=== PATIENT | male | born 1975 | race Two or more races ===

== ENCOUNTER 2020-01-17 15:54 | Inpatient (IN) | payer MEDICAID, SELFPAY ==
[~2020-01-17] VITALS: Ht 170.2 cm; Wt 86.6 kg
[2020-01-17] MEDS ORDERED: VANCOMYCIN 1 GM in IV D5W 250 ML IV ONE ×2 (16:30→19:00)
[2020-01-17] MEDS ORDERED: CEFEPIME 1 GM in IV D5W 50 ML IV ONE ×2 (16:30→19:00)
[2020-01-17] MEDS ORDERED: DEXAMETHASONE SOD PHOSPHATE 10 MG/ML VIAL IV ONE ×2 (16:30→19:00)
--- NOTE | 2020-01-17 16:41 | NUR ---
AYSHA FROM HOME TO ER BED 6. AAOX4. IN MODERATE RESP DISTRESS, BREATHING SHALLOW AND RAPID. SATTING AT 70%S. BROUGHT IN FOR SOB. REPORTED THAT HIS IS COVID POSITIVE BUT HE HASNT BEEN TESTED YET. PT IS PLACED ON O2 VIA FACE MASK @ 10LPM, SATTING @ 90%. WAS AT THE BEDSIDE FOR EVAL. ORDERS RECEIVED NOTED AND CARRIED OUT.
[2020-01-17] MEDS ORDERED: DEXAMETHASONE SOD PHOSPHATE 10 MG/ML VIAL ONE (16:58)
[2020-01-17 17:03] LABS: ABG OXYGEN SATURATION 92.9 % (92.0-98.5); ABG PCO2 37.6 mmHg (35.0-45.0); ABG PH 7.469 (7.350-7.450); ABG PO2 73.7 mmHg (75.0-100.0); AaDO2 204.4 mmHg; COHb 0.9 % (0.5-1.5); MetHb 0.2 % (0.0-1.5); O2Hb 91.9 % (94.0-97.0); SITE, ABG Right Radial; VENT MODE, BG 6L NC
[2020-01-17 17:09] LABS: BASOPHILS % (AUTO) 0.1 % (0.0-2.0); EOSINOPHILS % (AUTO) 0.2 % (0.0-6.0); HEMATOCRIT 36 % (39-51); LYMPHOCYTES # (AUTO) 1.2 /CMM (0.8-4.8); LYMPHOCYTES % (AUTO) 7.3 % (20.0-44.0); MEAN CORPUSCULAR HGB CONC 33 g/dl (31.0-36.0); MEAN CORPUSCULAR VOLUME 90 fL (80-96); MONOCYTES # (AUTO) 0.6 /CMM (0.1-1.30); MONOCYTES % (AUTO) 3.7 % (2.0-12.0); NEUTROPHILS # (AUTO) 14.3 /CMM (1.8-8.9); NEUTROPHILS % (AUTO) 88.7 % (43.0-81.0); PLATELET COUNT (AUTO) 287 /CMM (150-450); RED BLOOD CELL COUNT(AUTO) 4.02 MIL/uL (4.5-6.0); WHITE BLOOD COUNT (AUTO) 16.1 K/uL (4.3-11.0)
[2020-01-17 17:58] LABS: CALCIUM, SERUM 8.5 mg/dL (8.5-10.1); CARBON DIOXIDE 31 mmol/L (21-32); CHLORIDE 104 mmol/L (98-107); CREATININE 1.4 mg/dL (0.6-1.3); GLUCOSE 166 mg/dL (74-106); POTASSIUM 3.4 mmol/L (3.5-5.1); SODIUM SERUM 141 mmol/L (136-145); UREA NITROGEN, BLOOD 23 mg/dL (7-18)
[2020-01-17 18:04] LABS: ALANINE AMINOTRANSFERASE 34 U/L (12-78); ALBUMIN 2.5 g/dL (3.4-5.0); ALKALINE PHOSPHATASE 107 U/L (46-116); ASPARTATE AMINOTRANSFERASE 28 U/L (15-37); BILIRUBIN,DIRECT 0.2 mg/dL (0.0-0.2); BILIRUBIN,TOTAL 0.4 mg/dL (0.2-1.0); TOTAL PROTEIN, SERUM 7.2 g/dL (6.4-8.2)
[2020-01-17] MEDS ORDERED: NS 0.9% IV ONE (19:00)
[2020-01-17] MEDS ORDERED: POTASSIUM CL. PREMIX PERIPHER. 50 ML IV SCH (19:00)
--- NOTE | 2020-01-17 19:53 | NUR ---
called rn sup for [facility] bed
[2020-01-17] MEDS ORDERED: Z GUARD REMEDY 2 OZ OINT TP PRN (20:00)
[2020-01-17] MEDS ORDERED: ONDANSETRON HCL/PF 4 MG/2 ML VIAL IVP PRN (20:00)
[2020-01-17] MEDS ORDERED: ENOXAPARIN SODIUM 40 MG/0.4 ML DISP.SYRIN SQ SCH (21:00)
--- NOTE | 2020-01-17 21:04 | NUR ---
REPORT GIVEN TO GOPAL WEBSTER FOR BENSON
--- NOTE | 2020-01-17 21:20 | NUR ---
RN OPENING NOTE ADMIT PATIENT TO [facility] UNIT,44 YEARS OLD FRISIAN MAN ALERT ORIENTED X4 VERBALLY RESPONSIVE 10 LITER OXYGEN VIA MASK,LABORED BREATHING,COVID 19 RAPID TEST POSITIVE MONITORING FOR DROPLET/CONTACT ISOLATION,IV SITE IS ON LEFT FOREARM INTACT PATENT,FLUSHED, AMBULATORY,CONTINENT TO BOWEL/BLADDER.CALL LIGHT WITHIN REACH,HEAD OF BED ELEVATED,SAFETY MEASURE IMPLEMENT CONTINUE TO MONITOR
--- NOTE | 2020-01-17 21:26 | NUR ---
pt trasnported to unit on [facility] with emt and rn at bedside w/ acls protocol. nad noted during transport.
--- NOTE | 2020-01-17 21:50 | NUR ---
2150 PATIENT WITH C/O DRY COUGH AND IS REQUESTING FOR COUGH MEDICATION. DR. MARIA MADE AWARE WITH ORDER TO GIVE ROBITUSSIN WITH CODEIN 5 ML NEEDED EVERY 6 HOURS FOR COUGH. HE ALSO CLARIFIED DECADRON ORDER.
[2020-01-17 22:00] VITALS: BP 139/80
[2020-01-17] MEDS: PANTOPRAZOLE 40 MG TABLET.DR PO SCH (22:27)
[2020-01-17] MEDS: GUAIFENESIN/CODEINE 10 ML UDC PO PRN (22:31)
[2020-01-17] MEDS: AZITHROMYCIN 500 MG in IV D5W 250 ML IV SCH (22:37)
[2020-01-17] MEDS ORDERED: CEFTRIAXONE 1 G VIAL ONE ×2 (22:47→22:48)
[2020-01-17] MEDS: CEFTRIAXONE 2 G in IV D5W 100 ML IV SCH (22:51)
[2020-01-17 22:54] LABS: FERRITIN 854 ng/mL (8-388)
[2020-01-18 02:00] VITALS: BP 120/74
[2020-01-18 06:00] VITALS: BP 110/53
[2020-01-18 06:32] LABS: BASOPHILS % (AUTO) 0.1 % (0.0-2.0); HEMATOCRIT 36 % (39-51); LYMPHOCYTES % (AUTO) 8.4 % (20.0-44.0); MEAN CORPUSCULAR HGB CONC 34 g/dl (31.0-36.0); MEAN CORPUSCULAR VOLUME 90 fL (80-96); MONOCYTES # (AUTO) 0.6 /CMM (0.1-1.30); MONOCYTES % (AUTO) 4.7 % (2.0-12.0); NEUTROPHILS # (AUTO) 10.6 /CMM (1.8-8.9); NEUTROPHILS % (AUTO) 86.8 % (43.0-81.0); PLATELET COUNT (AUTO) 289 /CMM (150-450); RED BLOOD CELL COUNT(AUTO) 3.97 MIL/uL (4.5-6.0); WHITE BLOOD COUNT (AUTO) 12.2 K/uL (4.3-11.0)
[2020-01-18 06:46] LABS: ALBUMIN 2.3 g/dL (3.4-5.0); BILIRUBIN,TOTAL 0.3 mg/dL (0.2-1.0); CALCIUM, SERUM 8.4 mg/dL (8.5-10.1); CREATININE 1.1 mg/dL (0.6-1.3); POTASSIUM 4.1 mmol/L (3.5-5.1); TOTAL PROTEIN, SERUM 7.1 g/dL (6.4-8.2)
--- NOTE | 2020-01-18 06:48 | NUR ---
RN CLOSING NOTE PATIENT REMAINS IN ALERT ORIENTED X4 VERBALLY RESPONSIVE ON 10L OXYGEN VIA NONBREATHER MASK O2:93% COUGHING,DIFFICULTY BREATHING, COVID POSITIVE,ON MONITORING FOR DROPLET/CONTACT ISOLATION,ALL DUE MED GIVEN MD ORDERED KEEP CLEAN AND DRY ALL THE TIME,KEEP COMFORTABLE.CALL LIGHT CHELSEY REACH ENDORSE NEXT COMING SHIFT FOR CONTINUATION OF CARE.
--- NOTE | 2020-01-18 07:30 | NUR ---
PT RECEIVED IN BED, ALERT AND ORIENTED X 4, PT ON 10L NON-REBREATHER O2 SATURATION 93-94%. PT DENIES SOB. PT IS AMBULATORY WITH SKIN INTACT. PT ON REGULAR DIET WITH LEFT FOREARM 18 INTACT AND FLUSHED WELL, NO SIGNS OF INFECTION OR INFILTRATION. BED IN LOCKED LOWEST POSITION, CALL LIGHT WITHIN REACH, WILL CONTINUE TO MONITOR CLOSELY
[2020-01-18 08:00] VITALS: BP 130/72
[2020-01-18] MEDS ORDERED: DEXAMETHASONE SOD PHOSPHATE 6 MG in IV D5W 50 ML IV SCH ×4 (09:00)
[2020-01-18] MEDS: DEXAMETHASONE SOD PHOSPHATE 10 MG/ML VIAL IV SCH (09:26)
[2020-01-18] MEDS: PANTOPRAZOLE 40 MG TABLET.DR PO SCH (09:26)
[2020-01-18 12:00] VITALS: BP 125/60
[2020-01-18] MEDS: APIXABAN 5 MG TABLET PO SCH ×2 (13:20→17:03)
[2020-01-18] MEDS ORDERED: MORPHINE SULFATE INJ 4 MG/ML DISP.SYRIN IV PRN (14:00)
[2020-01-18] MEDS: GUAIFENESIN/CODEINE 10 ML UDC PO PRN ×2 (14:03→20:13)
[2020-01-18 16:00] VITALS: BP 125/74
[2020-01-18] MEDS ORDERED: REMDESIVIR (CHARGED) 200 MG, *LOADING DOSE 1 EA in IV NS 0.9% 210 ML IV ONE (16:00)
--- NOTE | 2020-01-18 19:20 | NUR ---
MAILROOM COURIER NOTE: PATIENT RESTING IN BED, NO ACUTE DISTRESS NOTED. BREATHING EVEN AND UNLABORED, SOB NOTED. ON NONREBREATHER MASK AT 15 LITERS PER MINUTE. IV TO LFA IN PLACE. ISOLATION PRECAUTION OBSERVED. BED LOCKED AND IN LOWEST POSITION, CALL LIGHT IN REACH. WILL CONTINUE TO MONITOR.
--- NOTE | 2020-01-18 19:47 | NUR ---
PATIENT REMAINS IN BED, ALERT AND ORIENTED X 4. PT O2 INCREASED FROM 10L TO 15L TODAY, MD GOMEZ AWARE. O2 SATURATION 91-95%. PT HAS NASAL CONGESTION, MD PAYNE AWARE, NO NEW ORDERS. PT O2 SATURATION IMPROVED WITH ROBITUSSIN PRN FOR NON-PRODUCTIVE COUGH. CONVALESCENT PLASMA ORDER SENT TO LAB EARLIER THIS SHIFT. PT IV LFA 18 FLUSHED WELL, NO SIGNS OF INFECTION OR INFILTRATION. BED IN LOCKED LOWEST POSITION, CALL LIGHT WITHIN REACH, ALL SAFETY MEASURES IN PLACE. REPORT GIVEN TO AYDE FOR BENSON
[2020-01-18] MEDS: CEFTRIAXONE 2 G in IV D5W 100 ML IV SCH (19:55)
[2020-01-18 20:00] VITALS: BP 131/77
--- NOTE | 2020-01-18 20:15 | NUR ---
FUEL CELL SYSTEMS ENGINEER NOTE: PATIENT COUGHING, ROBITUSSIN AC 5ML GIVEN PER MD ORDER. WILL CONTINUE TO MONITOR.
[2020-01-18] MEDS: AZITHROMYCIN 500 MG in IV D5W 250 ML IV SCH (21:22)
[2020-01-19] VITALS (10 sets, daily range): BP systolic 114–135; BP diastolic 59–78
--- NOTE | 2020-01-19 00:45 | NUR ---
WOMENS VOLLEYBALL COACH NOTE: PATIENT CONVALESCENT PLASMA READY AND PICKED UP. CONSENT SIGNED AND IN CHART. PLASM VERIFIED WITH 2ND RN. VITAL SIGNS STABLE. WILL CONTINUE TO MONITOR.
--- NOTE | 2020-01-19 01:15 | NUR ---
FOOD CONSULTANT NOTE: PATIENT RECEIVING CONVALESCENT PLASMA, VITAL SIGNS STABLE, NO ADVERSE REACTION NOTED. WILL CONTINUE TO MONITOR.
[2020-01-19] MEDS: GUAIFENESIN/CODEINE 10 ML UDC PO PRN ×4 (02:28→23:47)
--- NOTE | 2020-01-19 02:28 | NUR ---
TRACK MAINTAINER NOTE: PATIENT RECEIVED CONVALESCENT PLASM WITHOUT COMPLICATIONS OR ADVERSE REACTION. VITAL SIGNS STABLE. PATIENT REQUESTING FOR COUGH MEDICATION, ROBITUSSIN AC GIVEN PER MD ORDER. WILL CONTINUE TO MONITOR.
--- NOTE | 2020-01-19 06:05 | NUR ---
ONCOLOGY CONSULTANT NOTE: PATIENT RESTING IN BED, NO ACUTE DISTRESS NOTED. BREATHING EVEN AND UNLABORED, SOB NOTED. ON NONREBREATHER MASK AT 15 LITERS PER MINUTE. IV TO LFA IN PLACE. ISOLATION PRECAUTION OBSERVED. BED LOCKED AND IN LOWEST POSITION, CALL LIGHT IN REACH. WILL ENDORSE TO DAY NURSE TO CONTINUE WITH PLAN OF CARE.
--- NOTE | 2020-01-19 07:30 | NUR ---
RN OPENING NOTES Patient present in bed, A/Ox4, on non-rebreather mask at 15L, SPO2 is 96%, tolerating well, no SOB, respirations even and unlabored, denies pain, resting comfortably, Tele-monitor readings is SR 77, using urinal, able to ambulate. IV line present on L arm G18, intact and patent, flushed well. safety measures in place, bed is locked, in lowest position, HOB elevated, call light in reach, O2 monitor connected, will cont to monitor
[2020-01-19 09:31] LABS: BASOPHILS % (AUTO) 0.1 % (0.0-2.0); HEMATOCRIT 38 % (39-51); HEMOGLOBIN 12.4 g/dL (13.5-17.5); LYMPHOCYTES # (AUTO) 1.2 /CMM (0.8-4.8); LYMPHOCYTES % (AUTO) 7.8 % (20.0-44.0); MEAN CORPUSCULAR HGB CONC 33 g/dl (31.0-36.0); MEAN CORPUSCULAR VOLUME 91 fL (80-96); MONOCYTES % (AUTO) 6.8 % (2.0-12.0); NEUTROPHILS # (AUTO) 12.6 /CMM (1.8-8.9); NEUTROPHILS % (AUTO) 85.3 % (43.0-81.0); PLATELET COUNT (AUTO) 274 /CMM (150-450); RED BLOOD CELL COUNT(AUTO) 4.18 MIL/uL (4.5-6.0); WHITE BLOOD COUNT (AUTO) 14.8 K/uL (4.3-11.0)
[2020-01-19] MEDS: APIXABAN 5 MG TABLET PO SCH ×2 (09:39→18:19)
[2020-01-19] MEDS: DEXAMETHASONE SOD PHOSPHATE 10 MG/ML VIAL IV SCH (09:40)
[2020-01-19] MEDS: PANTOPRAZOLE 40 MG TABLET.DR PO SCH (09:43)
[2020-01-19 09:59] LABS: LYMPHOCYTES % (MANUAL) 11 % (16-48); MONOCYTES % (MANUAL) 4 % (0-11.0); NEUTROPHILS % (MANUAL) 85 (42-76)
[2020-01-19 10:02] LABS: ALBUMIN 2.5 g/dL (3.4-5.0); BILIRUBIN,DIRECT 0.1 mg/dL (0.0-0.2); BILIRUBIN,TOTAL 0.3 mg/dL (0.2-1.0); CALCIUM, SERUM 8.5 mg/dL (8.5-10.1); POTASSIUM 3.7 mmol/L (3.5-5.1)
--- NOTE | 2020-01-19 12:48 | NUR ---
Per patient agreement, OK to provide info/emergency contact [phone] (Benji Cyr) brother in law
--- NOTE | 2020-01-19 14:24 | NUR ---
Per patient: he had hx of asthma in adolescence
[2020-01-19] MEDS: REMDESIVIR (CHARGED) 100 MG in IV NS 0.9% 230 ML IV SCH (16:18)
--- NOTE | 2020-01-19 19:13 | NUR ---
CLOSING NOTES REMAINS IN BED, TOLERATING O2 THERAPY WELL, NO SOB OR DISTRESS, NO DESATURATION DURING SHIFT, ABLE TO EAT WITH MASK, EDUCATION PROVIDED, MEDICATIONS GIVEN, PATIENT IS CLEAN AND STABLE, WILL ENDORSE TO PM SHIFT RN FOR BENSON
--- NOTE | 2020-01-19 19:40 | NUR ---
SAS ANALYST OPENING NOTES PATIENT AWAKE IN BED. A/OX4. ON NONREBREATHER MASK; CONTINUOUS PULSE OX READING 93%; NO S/S OF ACUTE RESPIRATORY DISTRESS. NO C/O PAIN AT THIS TIME. IV PRESENT ON LEFT FA, SIZE 18, INTACT & PATENT. TELE MONITOR READING NSR, HEART RATE 75. SAFETY MEASURES IN PLACE AND PATIENT'S NEEDS MET. BED LOCKED, HOB ELEVATED, SIDE RAILS X2, CALL LIGHT WITHIN REACH. WILL CONTINUE TO MONITOR.
[2020-01-19] MEDS: CEFTRIAXONE 2 G in IV D5W 100 ML IV SCH (19:58)
[2020-01-19] MEDS: AZITHROMYCIN 500 MG in IV D5W 250 ML IV SCH (21:22)
--- NOTE | 2020-01-19 23:54 | NUR ---
ENVIRONMENTAL HEALTH AND SAFETY MANAGER NOTES PATIENT COUGHING AND DESATURATED TO LOW 80S ON 15L NONREBREATHER. NOTIFIED MUCK MINER MONOTYPER, ALMA SANCHEZ. PER ALURA, WILL ORDER BREATHING TREATMENTS AND TO GIVE PRN ROBITUSSIN STAT. ADMINISTERED PRN ROBITUSSIN 5ML PO GIVEN PER ORDERS. PATIENT STATED RELIEF OF COUGH. O2 SATURATION 91-93 ON 15 L NONREBREATHER. WILL CONTINUE TO MONITOR.
[2020-01-20] VITALS (45 sets, daily range): BP systolic 101–145; BP diastolic 28–91
[2020-01-20] MEDS ORDERED: ALBUTEROL SULFATE INH 18 GM HFA.AER.AD IH PRN
[2020-01-20] MEDS ORDERED: ALBUTEROL SULFATE 8 GM HFA.AER.AD ONE (02:45)
--- NOTE | 2020-01-20 02:47 | NUR ---
LOCK EXPERT NOTE RECEIVED ORDERS FOR PRN ALBUTEROL INH FROM . NOTIFIED NURSING SHIPPING AND RECEIVING COORDINATOR; RETRIEVED FROM NIGHT LOCKER. ADMINISTERED PRN ALBUTEROL INH PER MD ORDERS. WILL CONTINUE TO MONITOR.
--- NOTE | 2020-01-20 03:17 | NUR ---
STEAM PRESSURE CHAMBER OPERATOR NOTES NOTIFIED BEAUTY CULTURIST PET CARETAKER, ALAM SANCHEZ, THAT PATIENT'S SATURATION 85% ON 15 L NONREBREATHER. RECEIVED ORDERS TO PLACE PATIENT ON HIGH FLOW OXYGEN 20-25 L. NOTIFIED RESPIRATORY THERAPIST.
[2020-01-20] MEDS: GUAIFENESIN/CODEINE 10 ML UDC PO PRN ×3 (03:47→16:01)
--- NOTE | 2020-01-20 04:16 | NUR ---
TELE NOTES PATIENT ON HIGH FLOW OXYGEN AND NONREBREATHER MASK; SATURATION 86-89%. WILL CONTINUE TO MONITOR.
[2020-01-20] MEDS: ACETAMINOPHEN 325 MG TABLET PO PRN ×2 (05:14→08:32)
--- NOTE | 2020-01-20 05:15 | NUR ---
GROUT WORKER NOTES PATIENT'S TEMP 100.0. ADMINISTERED PRN TYLENOL 650 MG P0. APPLIED COOLING MEASURES. WILL CONTINUE TO MONITOR.
[2020-01-20 06:55] LABS: BASOPHILS % (AUTO) 0.1 % (0.0-2.0); EOSINOPHILS % (AUTO) 0.1 % (0.0-6.0); HEMATOCRIT 36 % (39-51); HEMOGLOBIN 12.1 g/dL (13.5-17.5); LYMPHOCYTES # (AUTO) 1.5 /CMM (0.8-4.8); MEAN CORPUSCULAR HGB CONC 33 g/dl (31.0-36.0); MEAN CORPUSCULAR VOLUME 89 fL (80-96); MONOCYTES # (AUTO) 0.8 /CMM (0.1-1.30); MONOCYTES % (AUTO) 6.7 % (2.0-12.0); NEUTROPHILS # (AUTO) 10.1 /CMM (1.8-8.9); NEUTROPHILS % (AUTO) 81.1 % (43.0-81.0); PLATELET COUNT (AUTO) 213 /CMM (150-450); RED BLOOD CELL COUNT(AUTO) 4.07 MIL/uL (4.5-6.0); WHITE BLOOD COUNT (AUTO) 12.4 K/uL (4.3-11.0)
[2020-01-20 07:10] LABS: ALBUMIN 2.5 g/dL (3.4-5.0); BILIRUBIN,DIRECT 0.4 mg/dL (0.0-0.2); BILIRUBIN,TOTAL 0.7 mg/dL (0.2-1.0); CALCIUM, SERUM 8.3 mg/dL (8.5-10.1); POTASSIUM 3.5 mmol/L (3.5-5.1); TOTAL PROTEIN, SERUM 6.7 g/dL (6.4-8.2)
--- NOTE | 2020-01-20 07:37 | NUR ---
TIME STAMP ASSEMBLER CLOSING NOTES PATIENT SLEEPING, AWAKENS TO NAME. A/OX4. ON HIGH FLOW OXYGEN AND NONREBREATHER MASK; CONTINUOS SPO2 READING 90%. TELE MONITOR READING NSR, HEART RATE 88. IV PRESENT ON LEFT FA, SIZE 18, INTACT & PATENT. SAFETY MEASURES IN PLACE AND PATIENT'S NEEDS MET. BED LOCKED, HIGH FOWLERS POSITION, CALL LIGHT WITHIN REACH. REPORT GIVEN TO DAY SHIFT RN.
--- NOTE | 2020-01-20 07:43 | NUR ---
RN TELE1 CONTACTED DR GOMEZ ABOUT PATIENT'S DESATURATION AND HE DECIDED TO TRANSFER TO ICU.
--- NOTE | 2020-01-20 08:00 | NUR ---
RN NOTES RECEIVED PT IN ROOM 257, PT IS A/OX4, LAO SPEAKING, ON HIGH FLOW O2 AND NONREBREATHING MASK, O2 SAT IN LOW 90'S , ENCOURAGED DEEP AND SLOW BREATHING, PT IS ANXIOUS , ON TELE SR HR IN 80'S , PT IS ABLE TO USE URINAL , VOIDING WELL, L FA IV SITE G 18 CLEAN, DRY AND INTACT, PT IS HARD STICK , ORDER RECEIVED FOR MIDLINE, SR UP x3, CALL LIGHT WITHIN EASY REACH BED LOCKED AND IN LOWEST POSITION, CONTINUE TO MONITOR .
--- NOTE | 2020-01-20 08:10 | NUR ---
RN NOTE TRANSFERED PATIENT TO ICU, GAVE REPORT TO JUAN WELCH RN, PROVIDED CHART AND ALL BELONGINGS. PATIENT TRANSPORTED IN BED, ON 15L HIGH FLOW OXYGEN 100%, RT PRESENT, ON TELE MONITOR NO CHANGES, PATIENT TOLERATED WELL, NO S/S OF DISTRESS.
[2020-01-20] MEDS: PANTOPRAZOLE 40 MG TABLET.DR PO SCH (08:31)
[2020-01-20] MEDS: DEXAMETHASONE SOD PHOSPHATE 10 MG/ML VIAL IV SCH (08:31)
[2020-01-20] MEDS: APIXABAN 5 MG TABLET PO SCH ×2 (08:33→16:00)
[2020-01-20 10:49] LABS: LYMPHOCYTES % (MANUAL) 16 % (16-48); MONOCYTES % (MANUAL) 6 % (0-11.0); NEUTROPHILS % (MANUAL) 78 (42-76)
[2020-01-20] MEDS ORDERED: Z GUARD REMEDY 2 OZ OINT TP PRN (11:00)
[2020-01-20] MEDS ORDERED: ONDANSETRON HCL/PF 4 MG/2 ML VIAL IVP PRN (11:00)
[2020-01-20] MEDS ORDERED: CEFTRIAXONE 2 G in IV D5W 100 ML IV SCH (11:00)
[2020-01-20] MEDS ORDERED: ACETAMINOPHEN 325 MG TABLET PO PRN (11:00)
[2020-01-20] MEDS ORDERED: ENOXAPARIN SODIUM 40 MG/0.4 ML DISP.SYRIN SQ SCH (11:00)
[2020-01-20] MEDS ORDERED: AZITHROMYCIN 500 MG in IV D5W 250 ML IV SCH (11:00)
[2020-01-20] MEDS ORDERED: DEXAMETHASONE SOD PHOSPHATE 10 MG/ML VIAL IV SCH (11:00)
[2020-01-20 11:24] LABS: ABG BASE EXCESS 0.6 mmol/L; ABG PCO2 32.4 mmHg (35.0-45.0); ABG PH 7.477 (7.350-7.450); ABG PO2 73.7 mmHg (75.0-100.0); AaDO2 606.9 mmHg; COHb 0.3 % (0.5-1.5); MetHb 0.6 % (0.0-1.5); O2Hb 92.2 % (94.0-97.0); SITE, ABG Right Radial; VENT MODE, BG HIGHFLOW 95% NC+NRB MSK
--- NOTE | 2020-01-20 12:00 | NUR ---
RN NOTES VSS STABLE , CONTINUE TO MONITOR.
[2020-01-20] MEDS: REMDESIVIR (CHARGED) 100 MG in IV NS 0.9% 230 ML IV SCH (17:08)
--- NOTE | 2020-01-20 18:00 | NUR ---
RN NOTES PT REMAINS ON HIGH FLOW O2 AT 60L AND NONREBREATHING MASK , O2 SAT IN LOW 90'S , TACHYPNEIC , A/Ox4, ENCOURAGED DEEP AND SLOW BREATHING , R UPPER ARM MIDLINE SITE CLEAN, DRY AND INTACT, SR UP x3, CALL LIGHT WITHIN EASY REACH, BED LOCKED AND IN LOWEST POSITION, WILL ENDORSE TO FOOTWEAR PRODUCTION MACHINE OPERATOR NURSE FOR CONTINUITY OF CARE .
--- NOTE | 2020-01-20 19:10 | NUR ---
RN OPENING NOTES RECEIVED PT IN BED. ISOLATION PRECAUTIONS IN PLACE FOR COVID POSITIVE RESULT. PT IS ANXIOUS. NEEDS VERBAL REASSURANCE, RESPONSIVE TO EDUCATION. A/O X 4. PRIMARILY BARBADIAN SPEAKING, BUT PT UNDERSTANDS [place] AND ABLE TO MAKE NEEDS KNOWN. PT IS ON 60L FIO2 OF 100% ON HIGH FLOW AND NON REBREATHER MASK. PT IS CURRENTLY TOLERATING WELL. SATURATING AT 93%. PT IS CURRENTLY NOT IN RESPIRATORY DISTRESS AT THIS TIME. BREATHING IS EVEN AND UNLABORED. PT IS ON CARDIAC MONITORING, NORMAL SINUR TACHY HR IS 100 AT THIS TIME, PT BASELINE WNL. IV SITE LEFT FA#18 AND CAROL MIDLINE FLUSHED ASEPTICALLY. PT USES URINAL AT BEDSIDE. DENIES PAIN AT THIS TIME. SAFETY MEASURES IN PLACE. PT HOB ELEVATED. SIDE RAILS UP X2. BED IS LOCKED IN LOWEST POSITION. CALL LIGHT WITHIN REACH. WILL CONTINUE TO MONITOR.
--- NOTE | 2020-01-20 19:55 | NUR ---
RT NOTE PT RECEIVED ON HIGH FLOW NASAL CANNULA @ 60 LPM @ 95%. PT IS AWAKE/ALERT. WATER LEVEL GOOD. NO RESPIRATORY DISTRESS NOTED. WILL CONTINUE TO MONITOR CLOSELY. Addendum: 01/20/20 at 1956 by NICOLE ALVARADO RT Amended: Links added.
--- NOTE | 2020-01-20 20:27 | NUR ---
PT HAS ABX DUE AT 1999, LAST PHARMACY DROP OFF DID NOT HAVE ABX, CALLED PHARMACY. NO ANSWER. WILL CONTINUE TO CALL AND F/U.
--- NOTE | 2020-01-20 21:23 | NUR ---
RETRIEVED ABX FROM PT OLD UNIT, WILL ADMINISTER ABX NOW.
[2020-01-20] MEDS: AZITHROMYCIN 500 MG in IV D5W 250 ML IV SCH (21:25)
[2020-01-20] MEDS: CEFTRIAXONE 2 G in IV D5W 100 ML IV SCH (21:25)
[2020-01-20] MEDS: ALPRAZOLAM 0.25 MG TABLET PO PRN (22:07)
--- NOTE | 2020-01-20 22:17 | NUR ---
PT VERBALIZES BEING ANXIOUS ON MULTIPLE OCCASIONS, PER PT REQUESTS MEDICATION FOR ANXIETY. AFTER VERBAL REASSURANCE AND ENCOURAGEMENT TO TAKE DEEP BREATHS WITH PRIMARY NURSE AND CHARGE NURSE. UPDATED FAMILY ON PT CONDITION/SITUATION. NEPHEW SAYS HE AND PT WILL ENCOURAGE PT/MOTIVATE TO DECREASE ANXIETY. PT VERBALIZES FEELING BETTER, BUT STILL REQUESTS MEDICATION. RETRIEVED ORDER AFTER INFORMING DR PAYNE OF PT SITUATION, AND ADMINISTERED XANAX PRN ORDERED Q8H PRN FOR ANXIETY. PT SATURATION AT THIS TIME IS 93%. CHARGE NURSE MADE AWARE. WILL CONTINUE TO MONITOR.
[2020-01-21] VITALS (24 sets, daily range): BP systolic 90–166; BP diastolic 21–94
[2020-01-21] MEDS: GUAIFENESIN/CODEINE 10 ML UDC PO PRN ×4 (00:37→20:15)
--- NOTE | 2020-01-21 00:38 | NUR ---
PT IS RESTING, WAKES UP INTERMITTENTLY. PT O2 SATURATION 88-91% ENCOURAGED PT TO TAKE DEEP BREATHS. PT HAS COUGH AND REQUEST PRN OF COUGH MEDICATION AT THIS TIME, WILL GIVE ORDERED.
[2020-01-21] MEDS: ACETAMINOPHEN 325 MG TABLET PO PRN (03:50)
--- NOTE | 2020-01-21 03:50 | NUR ---
PT TEMP IS NOTED TO BE 102.1 TYLENOL PRN GIVEN.
--- NOTE | 2020-01-21 04:45 | NUR ---
PT DENIES BED BATH AT THIS TIME. MOTIVATED TO SELF CARE. INDEPENDENT. PT VERBALIZES HE IS OK WITHOUT IT FOR NOW WILL ASK DURING THE DAY.
[2020-01-21 04:59] LABS: BASOPHILS % (AUTO) 0.1 % (0.0-2.0); EOSINOPHILS % (AUTO) 0.2 % (0.0-6.0); HEMATOCRIT 35 % (39-51); HEMOGLOBIN 11.8 g/dL (13.5-17.5); LYMPHOCYTES # (AUTO) 1.4 /CMM (0.8-4.8); LYMPHOCYTES % (AUTO) 8.7 % (20.0-44.0); MEAN CORPUSCULAR HGB CONC 33 g/dl (31.0-36.0); MEAN CORPUSCULAR VOLUME 91 fL (80-96); MONOCYTES # (AUTO) 0.5 /CMM (0.1-1.30); MONOCYTES % (AUTO) 3.4 % (2.0-12.0); NEUTROPHILS # (AUTO) 14.3 /CMM (1.8-8.9); NEUTROPHILS % (AUTO) 87.6 % (43.0-81.0); PLATELET COUNT (AUTO) 162 /CMM (150-450); RED BLOOD CELL COUNT(AUTO) 3.91 MIL/uL (4.5-6.0); WHITE BLOOD COUNT (AUTO) 16.3 K/uL (4.3-11.0)
[2020-01-21 05:20] LABS: ALBUMIN 2.3 g/dL (3.4-5.0); BILIRUBIN,TOTAL 0.6 mg/dL (0.2-1.0); CALCIUM, SERUM 8.3 mg/dL (8.5-10.1); CREATININE 1.1 mg/dL (0.6-1.3); MAGNESIUM 2.1 mg/dL (1.8-2.4); PHOSPHORUS 1.9 mg/dL (2.5-4.9); POTASSIUM 3.7 mmol/L (3.5-5.1); TOTAL PROTEIN, SERUM 6.8 g/dL (6.4-8.2)
[2020-01-21 05:22] LABS: THYROID STIMULATING HORMONE 0.31 uIU/mL (0.358-3.74)
--- NOTE | 2020-01-21 05:35 | NUR ---
PT TEMP RECHECK IS 99.9 WILL CONTINUE TO MONITOR
[2020-01-21] MEDS ORDERED: PANTOPRAZOLE 40 MG TABLET.DR PO SCH (07:30)
--- NOTE | 2020-01-21 07:57 | NUR ---
RN CLOSING NOTES NO SIGNIFICANT CHANGES IN PT CONDITION. PT STILL ON SAME HIGH FLOW AND NON REBREATHER 60L AT 100%. PT BREATHING IS EVEN, BUT WITH OCCASIONAL PERIOD OF LABORED BREATHING. CURRENTLY NOT IN RESP DISTRESS OR EXPERIENCING SOB AT THIS TIME. PT STILL ANXIOUS. ON TELE MONITORING HEART RATE OF 101. SAFETY MEASURES IN PLACE. HOB ELEVATED. SIDE RAILS X 2 UP. BED LOCKED IN LOWEST POSITION. BED ALARM ON. CALL LIGHT WITHIN REACH. ENDORSED TO AM NURSE FOR CONTINUATION OF CARE.
--- NOTE | 2020-01-21 08:00 | NUR ---
agricultural mechanic notes RECEIVED PATIENT IN THE BED ON NON -REBREATHER MASK 15L, AND HIGH FLOW OXYGEN. PATIENT A/O X3, ANXIOUS, WORRIED BECAUSE OF ON OXYGEN, EDUCATED PATIENT BREATHING TECHNICS, AND ALSO SEEN BY RT. KEEP HOB ELEVATED . PATIENT TOLERATED BREAKFAST POOR, EDUCATED TO INCREASE FLUID INTAKE. CALL LIGHT WITHIN TO REACH. NEED ATTENDED AND ANTICIPATED. IV ACCESS ON RIGHT UA MIDLINE INFUSING NS TKO 10 ML. WILL MONITORING.
[2020-01-21] MEDS: APIXABAN 5 MG TABLET PO SCH ×2 (08:18→17:30)
[2020-01-21] MEDS: PANTOPRAZOLE 40 MG TABLET.DR PO SCH (08:18)
[2020-01-21] MEDS: DEXAMETHASONE SOD PHOSPHATE 10 MG/ML VIAL IV SCH (08:19)
--- NOTE | 2020-01-21 08:21 | NUR ---
ENGLISH DIVISION CHAIR NOTES ADMINISTERED ROBITUSSIN 10 MG PO PRN FOR COUGH, PER PATIENT REQUEST. ALSO ADMINISTERED SCHEDULED MEDICATION.
[2020-01-21 09:12] LABS: ABG BASE EXCESS -0.7 mmol/L; ABG OXYGEN SATURATION 66.9 % (92.0-98.5); ABG PCO2 26.8 mmHg (35.0-45.0); ABG PH 7.511 (7.350-7.450); ABG PO2 34.3 mmHg (75.0-100.0); AaDO2 651.9 mmHg; COHb 1.4 % (0.5-1.5); SITE, ABG Right Radial; VENT MODE, BG HIGH FLOW 60 L / 100% FIO
[2020-01-21] MEDS ORDERED: K PHOS NEUTRAL 250 MG TABLET PO ONE (14:00)
--- NOTE | 2020-01-21 14:15 | NUR ---
RN NOTES ADMINISTERED ROBITUSSIN 10 ML PO PRN FOR COUGHING PER PATIENT REQUEST PRESCRIBED. ALSO ADMINISTERED SCHEDULED MEDICATION.
[2020-01-21] MEDS: REMDESIVIR (CHARGED) 100 MG in IV NS 0.9% 230 ML IV SCH (15:59)
--- NOTE | 2020-01-21 18:30 | NUR ---
RN NOTES PATIENT IN THE BED , PM ACRE DONE, GET SOB PER COUGHING, AND REMOVAL OF NON -REDEBRIDEMENT MASK. MD AWARE OF, PATIENT INDEPENDENT IN THE BED. ENDORSED ONCOMING NURSE FOLLOW PLAN OF CARE.
--- NOTE | 2020-01-21 19:15 | NUR ---
RN OPENING NOTES: RECEIVED PT A/OX4 IN BED RESTING COMFORTABLY. PATIENT IN NO S/SX OF ACUTE DISTRESS AT THIS TIME. NO SOB NOTED. PATIENT'S BREATHING IS EVEN AND UNLABORED. PATIENT IS ON 60L OF OXYGEN VIA NBR MASK; TOLERATING WELL. PATIENT ON TELE MONITORING READING SINUS RHYTHM HR IS @90s AT THE TIME OF RECEIVED. PATIENT ON REGULAR DIET. NOTED IV SITE ON L FA #18 AND R UAM MIDLINE ; BOTH PATENT, INTACT AND FLUSHING WELL; NO S/S OF INFECTION OR INFILTRATION. PATIENT AMBULATORY WITH ASSIST. URINAL AT BEDSIDE. SAFETY MEASURES HAVE BEEN PROVIDED AND IMPLEMENTED. PATIENT BED ALARM IS ON. HEAD OF BED ELEVATED. BED IS LOCKED, IN LOWEST POSITION AND SIDE RAILS UP. CALL LIGHT WITHIN REACH OF THE PATIENT. APPLICABLE ISOLATION PRECAUTIONS IN PLACE. WILL CONTINUE TO MONITOR AND REASSESS FOR ANY CHANGES AND WILL CARRY OUT ANY ONGOING AND ACTIVE MD ORDER.
[2020-01-21] MEDS: AZITHROMYCIN 500 MG in IV D5W 250 ML IV SCH (19:44)
[2020-01-21] MEDS: CEFTRIAXONE 2 G in IV D5W 100 ML IV SCH (19:44)
--- NOTE | 2020-01-21 22:00 | NUR ---
RN NOTES PATIENT REMAINS IN NO ACUTE RESPIRATORY DISTRESS AT THIS TIME, NO CHANGES TO CONDITION/STATUS. CREDIT BALANCE SPECIALIST WELL AWARE. WILL CONTINUE TO MONITOR AND REASSESS FOR ANY CHANGES THROUGHOUT THE SHIFT
[2020-01-22] VITALS (60 sets, daily range): BP systolic 48–194; BP diastolic 32–105
[2020-01-22] MEDS: ALPRAZOLAM 0.25 MG TABLET PO PRN (01:08)
--- NOTE | 2020-01-22 01:08 | NUR ---
RN NOTES PATIENT NOTED TO BE ANXIOUS IN BED; PRN MEDICATION GIVEN NEEDED. COMFORT MEASURES RENDERED. THERMOSCREW OPERATOR MADE AWARE. WILL CONTINUE TO MONITOR AND ASSESS THROUGHOUT THE SHIFT.
[2020-01-22] MEDS: GUAIFENESIN/CODEINE 10 ML UDC PO PRN (02:06)
[2020-01-22] MEDS ORDERED: ROCURONIUM BROMIDE 50 MG/5 ML IV ONE (03:00)
[2020-01-22] MEDS ORDERED: ETOMIDATE 2 MG/ML VIAL IV ONE (03:00)
--- NOTE | 2020-01-22 03:05 | NUR ---
RN NOTES 0255- NOTED PT TO BE IN DISTRESS O2 SAT WENT DOWN TO 20s. PATIENT CODED AROUND 0255; 0302 -ER MD (DR. YADAV) CAME IN AND ORALLY INTUBATED WITH ET TUBE SIZE 7.5 AT 22CM AT THE LIP AND [facility] SETTINGS FOLLOWS: AC 20 TIDAL VOL: 500 FIO2: 100% AND PEEP OF 15. BROKER AGRICULTURAL PRODUCE WELL AWARE. WILL CONTINUE TO MONITOR AND ASSESS THROUGHOUT THE SHIFT.
--- NOTE | 2020-01-22 03:15 | NUR ---
RN NOTES COMMUNICATED WITH ANTON YOUSIF, INFORMED OF PATIENT'S CURRENT STATUS. ANTON YOUSIF ORDERED THE FOLLOWING: TO START DIPRIVAN, ABG SCHEDULE @0402, BRANDON CATH INSERTION, NGT INSERTION, RESTRAINTS AND CHEST XRAY @0700AM. WILL CARRY OUT ORDERED. ASBESTOS SHINGLE ROOFER MADE AWARE. PITER CONTINUE TO MONITOR AND ASSESS THROUGHOUT THE SHIFT.
[2020-01-22] MEDS ORDERED: PROPOFOL 100 ML ONE (03:39)
--- NOTE | 2020-01-22 03:50 | NUR ---
RT NOTE PT INTUBATED WITH 7.5 ET TUBE @ 22 CM MID LIP LINE. ET TUBE SECURED VIA ANCHOR FAST. AMBU BAG @ HOB. VENT PLUGGED TO RED OUTLET. ALARMS ON AND AUDIBLE. BILATERAL CHEST RISE NOTED. SX DONE, SMALL THICK WHITE SECRETIONS NOTED. WILL DRAW ABG @ 0400. WILL CONTINUE TO MONITOR CLOSELY. Addendum: 01/22/20 at 0353 by NICOLE ALVARADO RT Amended: Links added.
[2020-01-22] MEDS: PROPOFOL 100 ML IV PRN ×11 (03:52→23:49)
--- NOTE | 2020-01-22 03:59 | NUR ---
RT NOTE LATE ENTRY: ETT ADVANCED BY 2CM PER MD ORDERS. ADEQUATE VOLUMES AND O2 SATURATION NOTED. WILL CONTINUE TO MONITOR. Addendum: 01/22/20 at 0525 by GALI SCOTT RT Amended: Links added.
--- NOTE | 2020-01-22 04:00 | NUR ---
RN NOTES PATIENT NOTED TO BE SEVERELY AGITATED IN BED, INFORMED ANTON YOUSIF ABOUT IT. ANTON YOUSIF ADVISED TO INCREASE MAX DOSE RATE OF DIPRIVAN @75MCG/KG/MIN AND 1 TIME ORDER FOR ATIVAN 2MG IV. HOSPITAL SOCIAL WORKER MADE AWARE AND WILL CARRY OUT ORDER REQUESTED.
[2020-01-22] MEDS ORDERED: LORAZEPAM INJ 2 MG/ML VIAL IV STA (04:11)
--- NOTE | 2020-01-22 04:30 | NUR ---
RN NOTES COMMUNICATED WITH ANTON YOUSIF, INFORMED ABOUT PT'S CURRENT STATUS. ANTON YOUSIF ORDERED THE FOLLOWING: ABG @0800 AND TO START LEVOPHED PRN PER PROTOCOL, TO MAINTAIN SBP >90MMHG. SKI LIFT OPERATOR MADE AWARE. WILL CARRY OUT ORDER REQUESTED. WILL CONTINUE TO MONITOR AND ASSESS THROUGHOUT THE SHIFT.
[2020-01-22 04:36] LABS: ABG BASE EXCESS -6.5 mmol/L; ABG PCO2 51.4 mmHg (35.0-45.0); ABG PH 7.235 (7.350-7.450); ABG PO2 46.5 mmHg (75.0-100.0); AaDO2 615.1 mmHg; MetHb 0.3 % (0.0-1.5); O2Hb 69.1 % (94.0-97.0); PEEP,BG 15 cm H2O; SITE, ABG Right Radial; VT, ABG 500 mL
[2020-01-22 04:55] LABS: BASOPHILS % (AUTO) 0.1 % (0.0-2.0); EOSINOPHILS % (AUTO) 0.1 % (0.0-6.0); HEMATOCRIT 38 % (39-51); HEMOGLOBIN 12.3 g/dL (13.5-17.5); LYMPHOCYTES % (AUTO) 2.8 % (20.0-44.0); MEAN CORPUSCULAR HGB CONC 32 g/dl (31.0-36.0); MEAN CORPUSCULAR VOLUME 92 fL (80-96); MONOCYTES # (AUTO) 0.7 /CMM (0.1-1.30); NEUTROPHILS # (AUTO) 34.2 /CMM (1.8-8.9); PLATELET COUNT (AUTO) 184 /CMM (150-450); RED BLOOD CELL COUNT(AUTO) 4.15 MIL/uL (4.5-6.0)
--- NOTE | 2020-01-22 04:55 | NUR ---
RN NOTES RECEIVED CALL FROM LAB, [facility] ; WBC@ 35.9. COMMUNICATED WITH ANTON YOUSIF AND INFORMED CRITICAL LAB, NO ORDER AT THIS TIME PER MD. FITNESS TEACHER MADE AWARE.
[2020-01-22 04:59] LABS: WHITE BLOOD COUNT (AUTO) 35.9 K/uL (4.3-11.0)
[2020-01-22] MEDS ORDERED: NOREPINEPHRINE 8 MG in IV NS 0.9% 242 ML IV PRN (05:00)
[2020-01-22 05:15] LABS: ALBUMIN 2.2 g/dL (3.4-5.0); BILIRUBIN,DIRECT 0.3 mg/dL (0.0-0.2); BILIRUBIN,TOTAL 0.5 mg/dL (0.2-1.0); CREATININE 1.6 mg/dL (0.6-1.3); PHOSPHORUS 4.3 mg/dL (2.5-4.9); POTASSIUM 3.7 mmol/L (3.5-5.1); TOTAL PROTEIN, SERUM 6.7 g/dL (6.4-8.2)
[2020-01-22] MEDS ORDERED: NOREPINEPHRINE 8MG/250ML RTU 250 ML IV ONE (05:19)
[2020-01-22] MEDS: NOREPINEPHRINE 8 MG in IV NS 0.9% 242 ML IV PRN ×3 (05:38→16:39)
[2020-01-22 05:45] LABS: ABG BASE EXCESS -4.5 mmol/L; ABG OXYGEN SATURATION 86.6 % (92.0-98.5); ABG PCO2 36.8 mmHg (35.0-45.0); ABG PH 7.361 (7.350-7.450); ABG PO2 60.9 mmHg (75.0-100.0); AaDO2 615.3 mmHg; COHb 0.5 % (0.5-1.5); MetHb 0.1 % (0.0-1.5); O2Hb 86.1 % (94.0-97.0); PEEP,BG 15 cm H2O; SITE, ABG Right Brachial; VT, ABG 550 mL
[2020-01-22 06:21] LABS: BAND % (MANUAL) 3 % (0.0-5.0); LYMPHOCYTES % (MANUAL) 3 % (16-48); MONOCYTES % (MANUAL) 6 % (0-11.0); NEUTROPHILS % (MANUAL) 88 (42-76)
--- NOTE | 2020-01-22 06:58 | NUR ---
RN CLOSING NOTES PATIENT RESTING IN BED COMFORTABLY,PT SEDATED WELL WITH (75) MCG/KG/M OF DIPRIVAN. TOLERATING VENT SETTINGS ORDERED. NO SIGNS OF ACUTE DISTRESS. BREATHING EVEN AND UNLABORED. TELE MONITORS READING ST(107 BPM). VITAL SIGNS TAKEN AND RECORDED. IV LINE REMAINED PATENT AND INTACT WITHIN END OF SHIFT; WITH ALL IV MEDICATIONS RUNNING ORDERED. SAFETY PRECAUTIONS IN PLACE WITH BED IN LOWEST POSITION, CALL LIGHT WITHIN REACH, BREAKS ON, SIDE RAILS UP. ALL NEEDS ATTENDED TO; SHIFT ASSESSMENT/BEDBATH/SKIN/WOUND CARE DONE. PATIENT KEPT CLEAN AND DRY. WILL ENDORSE TO ONCOMING SHIFT FOR BENSON WITH ALL PERTINENT INFO REGARDING PATIENT STATUS, REGARDING NGT INSERTION TO BE DONE. ALL POST CODE ORDERS DONE ASIDE FROM NGT INSERTION. WILL ENDORSE ACCORDINGLY, SUPPLIES PREPARED AND PLACED @BEDSIDE.
--- NOTE | 2020-01-22 08:00 | NUR ---
RN NOTES RECEIVED PATIENT IN BED COMFORTABLE, TOLERATING EET SETTING WELL, NO ACUTE RESPIRATORY DISTRESS, PT SEDATED ON DIPRIVAN 75 MCG/KG/MG . BREATHING EVEN AND UNLABORED. TELE MONITORS READING SR -91, IV LINE PATENT RUNNING LIVOFED 0.3 MCG . NG TUBE INSERTED, AND ORDERED CHEST X-RAY FOR PLACEMENT. SIDE RAILS UP. KEEP HOB ELEVATED FOR ASPIRATION PRECAUTION.
--- NOTE | 2020-01-22 08:10 | NUR ---
RN NOTES GET ORDER Dr GOMEZ ATIVAN 2 MG/ML IV PUSH X1 FOR ANXIETY, ORDER TAKEN AND CARRIED OUT.
--- NOTE | 2020-01-22 08:22 | NUR ---
rn notes per Dr Hobbs get TO order increase Diprivan 100 mcg, and administered Ativan 2 mg/ml iv push for 20 /20 respiration. order taken and carried out.
[2020-01-22] MEDS ORDERED: LORAZEPAM INJ 2 MG/ML VIAL IV ONE (08:30)
[2020-01-22] MEDS: DEXAMETHASONE SOD PHOSPHATE 10 MG/ML VIAL IV SCH (08:51)
[2020-01-22] MEDS: APIXABAN 5 MG TABLET PO SCH ×2 (08:57→17:30)
[2020-01-22] MEDS: PANTOPRAZOLE 40 MG TABLET.DR PO SCH (09:15)
[2020-01-22 11:19] LABS: ABG OXYGEN SATURATION 95.1 % (92.0-98.5); ABG PCO2 35.9 mmHg (35.0-45.0); ABG PH 7.341 (7.350-7.450); ABG PO2 90.4 mmHg (75.0-100.0); AaDO2 442.3 mmHg; COHb 0.7 % (0.5-1.5); MetHb 0.2 % (0.0-1.5); O2Hb 94.2 % (94.0-97.0); PEEP,BG 15 cm H2O; SITE, ABG Right Radial; VT, ABG 550 mL
--- NOTE | 2020-01-22 12:00 | NUR ---
rn notes titrated down levophed to 0.2 because of bp was 144/76.
[2020-01-22] MEDS: REMDESIVIR (CHARGED) 100 MG in IV NS 0.9% 230 ML IV SCH (16:17)
--- NOTE | 2020-01-22 16:20 | NUR ---
et tube advanced to 26cm. Addendum: 01/22/20 at 1620 by YUKI ALMODOVAR RT Amended: Links added.
--- NOTE | 2020-01-22 18:50 | NUR ---
rn notes PM CARE DONE, DUE MEDICATION ADMINISTERED, UA SPECIMEN COLLECTED FROM CATHETER PORT. PATIENT ON DIPRIVAN ON 100 MCG, AND LEVOPHED 0.1 MCG. PATENT, INTACT. ASSIST TURN AND REPOSTION Q 2 HE. PATIENT TOLERATING EET SETTING WELL. NO ACUTE RESPIRATORY DISTRESS, CALL LIGHT WITHIN TO REACH. ENDORSED ONCOMING NURSE FOLLOW PLAN OF CARE.
--- NOTE | 2020-01-22 19:20 | NUR ---
ICU OPENING NOTES RECEIVED PATIENT;SEDATED WITH DIPRIVAN AT 100MCG/KG/MIN.PATIENT IN NO S/SX OF ACUTE DISTRESS AT THIS TIME. NO SOB NOTED. PATIENT'S BREATHING IS EVEN AND UNLABORED. PATIENT ON MECHANICAL VENT; SETTINGS PRESCRIBED; PT TOLERATED WELL. AMBU BAG AT BED SIDE ALARMS SET PER PROTOCOL AND AUDIBLE. VENT PLUGGED IN TO RED OUTLET. NO DISTRESS NOTED. NOTED NGT IN PLACED @ R NARE;65CM AT NOSE TIP, CLAMPED AT THIS TIME. PLACEMENT VERIFIED WITH AUSCULTATION. NO RESIDUAL. NOTED IV SITE ON L FA #18 AND R UA MIDLINE #18;PATENT, INTACT AND FLUSHING WELL; NO S/S OF INFECTION OR INFILTRATION.PATIENT ON NPO AT THIS TIME. PATIENT ONGOING LEVO DRIP ; RECEIVED @ DOSE RATE OF 0.1MCG/KG/MIN; MONITORED AND INFUSING PER PROTOCOL. BRANDON CATH IN PLACE, MODERATE YELLOW COLORED URINE OUTPUT BILATERAL SOFT WRIST RESTRAINTS IN PLACE, ASSESSED PER PROTOCOL. SAFETY MEASURES HAVE BEEN PROVIDED AND IMPLEMENTED. PATIENT BED ALARM IS ON. HEAD OF BED ELEVATED. BED IS LOCKED, IN LOWEST POSITION AND SIDE RAILS UP. CALL LIGHT WITHIN REACH OF THE PATIENT. APPLICABLE ISOLATION PRECAUTIONS IN PLACE. WILL CONTINUE TO MONITOR AND REASSESS FOR ANY CHANGES AND WILL CARRY OUT ANY ONGOING AND ACTIVE MD ORDER.
[2020-01-22] MEDS: CEFTRIAXONE 2 G in IV D5W 100 ML IV SCH (19:42)
[2020-01-22] MEDS: LORAZEPAM INJ 2 MG/ML VIAL IV PRN (20:21)
[2020-01-22] MEDS ORDERED: diphenhydrAMINE HCL 50 MG/ML VIAL IV ONE (20:30)
[2020-01-22] MEDS ORDERED: ACETAMINOPHEN 325 MG TABLET PO ONE (20:30)
[2020-01-22] MEDS: ACETAMINOPHEN 650 MG/20.3 ML UDC NG PRN (20:46)
--- NOTE | 2020-01-22 20:50 | NUR ---
RN NOTES @2045 ADMINISTERED THE FOLLOWING MEDS 30 MINS PRIOR TO ADMINISTRATION OF -BENADRYL 50MG/VIAL :25MG/1ML -TYLENOL /ACETAMINOPHEN 650MG/20.3ML UDC VIA NGT RN CHECK PLACEMENT of NG-TUBE, PLACEMENT VERIFIED AND CONFIRMED VIA AUSCULTATION NO RESIDUAL OUTPUT AT THIS TIME. ADMINISTERED TYLENOL /ACETAMINOPHEN 650MG/20.3ML UDC VIA NGT. WILL CONTINUE TO ASSESS AND MONITOR THROUGHOUT THE SHIFT. Addendum: 01/23/20 at 0257 by PATRICK OSORIO RN N NOTES @2045 ADMINISTERED THE FOLLOWING MEDS 30 MINS PRIOR TO ADMINISTRATION OF ACTEMRA: -BENADRYL 50MG/VIAL :25MG/1ML -TYLENOL /ACETAMINOPHEN 650MG/20.3ML UDC VIA NGT RN CHECK PLACEMENT of NG-TUBE, PLACEMENT VERIFIED AND CONFIRMED VIA AUSCULTATION NO RESIDUAL OUTPUT AT THIS TIME. ADMINISTERED TYLENOL /ACETAMINOPHEN 650MG/20.3ML UDC VIA NGT. WILL CONTINUE TO ASSESS AND MONITOR THROUGHOUT THE SHIFT.
[2020-01-22] MEDS ORDERED: TOCILIZUMAB 400 MG in IV NS 0.9% 80 ML IV ONE (21:00)
--- NOTE | 2020-01-22 22:00 | NUR ---
RN NOTES NO CHANGE IN PATIENT CONDITION AT THIS TIME PATIENT VITALS STABLE, NO SIGNS OF ACUTE RESPIRATORY DISTRESS. SALES AND RETAIL MANAGEMENT RECRUITER MADE AWARE. WILL CONTINUE TO MONITOR AND REASSESS FOR ANY CHANGES THROUGHOUT THE SHIFT.
[2020-01-23] VITALS (94 sets, daily range): BP systolic 91–165; BP diastolic 49–92
[2020-01-23] MEDS: PROPOFOL 100 ML IV PRN ×10 (01:52→22:31)
--- NOTE | 2020-01-23 03:00 | NUR ---
RN NOTES PATIENT REMAINS IN NO ACUTE RESPIRATORY DISTRESS AT THIS TIME, NO CHANGES TO CONDITION/STATUS. LEARNING DESIGN SPECIALIST WELL AWARE. WILL CONTINUE TO MONITOR AND REASSESS FOR ANY CHANGES THROUGHOUT THE SHIFT
[2020-01-23] MEDS: NOREPINEPHRINE 8 MG in IV NS 0.9% 242 ML IV PRN ×2 (03:17→08:52)
--- NOTE | 2020-01-23 04:26 | NUR ---
RT NOTE PT ORALLY INTUBATED VIA ETT SZ #7.5 SECURED AT 26CM AT THE LIP LINE. PT ON [facility] VENT ON AC MODE SETTINGS CHARTED. PT SX'D FOR SCANT AMT OF CLEAR SECRETIONS. ALARMS ARE SET AND AUDIBLE. VENT PLUGGED INTO RED OUTLET. AMBU BAG BEDSIDE. WILL CONTINUE TO MONITOR CLOSELY. Addendum: 01/23/20 at 0426 by GALI SCOTT RT Amended: Links added.
[2020-01-23 05:38] LABS: BASOPHILS % (AUTO) 0.1 % (0.0-2.0); HEMATOCRIT 35 % (39-51); HEMOGLOBIN 11.6 g/dL (13.5-17.5); LYMPHOCYTES # (AUTO) 0.7 /CMM (0.8-4.8); LYMPHOCYTES % (AUTO) 4.1 % (20.0-44.0); MEAN CORPUSCULAR HGB CONC 33 g/dl (31.0-36.0); MEAN CORPUSCULAR VOLUME 91 fL (80-96); MONOCYTES # (AUTO) 0.5 /CMM (0.1-1.30); MONOCYTES % (AUTO) 2.7 % (2.0-12.0); NEUTROPHILS # (AUTO) 16.5 /CMM (1.8-8.9); NEUTROPHILS % (AUTO) 93.1 % (43.0-81.0); PLATELET COUNT (AUTO) 187 /CMM (150-450); RED BLOOD CELL COUNT(AUTO) 3.88 MIL/uL (4.5-6.0); WHITE BLOOD COUNT (AUTO) 17.7 K/uL (4.3-11.0)
[2020-01-23 05:58] LABS: BILIRUBIN,TOTAL 0.3 mg/dL (0.2-1.0); CALCIUM, SERUM 8.1 mg/dL (8.5-10.1); CREATININE 1.3 mg/dL (0.6-1.3); MAGNESIUM 2.9 mg/dL (1.8-2.4); PHOSPHORUS 2.9 mg/dL (2.5-4.9); POTASSIUM 4.6 mmol/L (3.5-5.1); TOTAL PROTEIN, SERUM 6.5 g/dL (6.4-8.2)
[2020-01-23 06:23] LABS: CREATININE, URINE 173.9 MG/DL (30.0-125.0); URINE TOTAL PROTEIN 132.2 mg/dL (0-11.9)
--- NOTE | 2020-01-23 07:40 | NUR ---
ICU/RN PT IS INTUBATED ON THE VENT AC MODE,FIO2-60%,PEEP-15.SAT O2-96%.SEDATED ,ON DIPRIVAN .ON LEVOPHED DRIP.AFEBRILE.NO PAIN REPORTED AT THIS TIME.PT HAS NG TUBE CLAMPED.BILATERAL SOFT WRIST RESTRAINS ON.F/C DRAINING WITH CHARITY URINE. PT HAS MIDLINE .SUCTION PROVIDED.REPOSITION FOR COMFORT.
[2020-01-23] MEDS: PANTOPRAZOLE 40 MG TABLET.DR PO SCH (08:33)
[2020-01-23] MEDS: DEXAMETHASONE SOD PHOSPHATE 10 MG/ML VIAL IV SCH (08:33)
[2020-01-23] MEDS: APIXABAN 5 MG TABLET PO SCH ×2 (08:34→16:58)
[2020-01-23 08:38] LABS: ABG BASE EXCESS -1.2 mmol/L; ABG OXYGEN SATURATION 95.1 % (92.0-98.5); ABG PCO2 37.1 mmHg (35.0-45.0); ABG PH 7.411 (7.350-7.450); ABG PO2 86.7 mmHg (75.0-100.0); AaDO2 300.3 mmHg; COHb 0.3 % (0.5-1.5); MetHb 0.3 % (0.0-1.5); O2Hb 94.5 % (94.0-97.0); PEEP,BG 15 cm H2O; SITE, ABG Right Radial; VENT MODE, BG AC 20 550 60% +15; VT, ABG 550 mL
--- NOTE | 2020-01-23 09:00 | NUR ---
ICU/RN DUE MEDS ARE GIVEN ORDERED.LABS REVIEW.ABG DONE.MD NOTIFIED.
[2020-01-23] MEDS: LORAZEPAM INJ 2 MG/ML VIAL IV PRN ×2 (09:23→18:19)
--- NOTE | 2020-01-23 09:50 | NUR ---
ICU/RN SEDATION VACATION PROVIDED.PT IS NOT STABLE .AGITATED.ON HIGH PEEP-15.MD NOTIFIED.
[2020-01-23 12:11] LABS: BILIRUBIN,URINE SMALL (NEGATIVE); BLOOD, URINE LARGE Ery/uL (NEGATIVE); COLOR,URINE AMBER (YELLOW); LEUKOCYTE ESTERASE ,URINE NEGATIVE (NEGATIVE); NITRITE, URINE NEGATIVE (NEGATIVE); PROTEIN,URINE 30 mg/dl (NEGATIVE); UGLUCOSE 250 MG/DL mg/dL (NEGATIVE); UROBILINOGEN,URINE 0.2 EU/dL (0.2)
[2020-01-23 12:20] LABS: BACTERIA,URINE Few /HPF (None Seen); RBC,URINE 81-100 /HPF (0-2); WBC,URINE 0-3 /HPF (0-3)
[2020-01-23 12:21] LABS: SQUAMOUS EPITHELIAL CELL,UR Few /HPF (None Seen)
[2020-01-23 13:58] LABS: EOSINOPHIL,URINE None Seen
--- NOTE | 2020-01-23 17:35 | NUR ---
ICU/RN PM CARE PROVIDED.DUE MEDS ARE GIVEN ORDERED.SUCTION PROVIDED.REPOSITION FOR COMFORT.FIO2 DECREASED TO 50%. ORDERED BY DR GRIGGS. KEEP SAT O2MORE THEN 90%.SAT O2-92%.PT IS STILL ON LEVOPHED.SEDATED ON 100MCG/KG/MIN. CONTINUE MONITORING.
[2020-01-23] MEDS: CEFTRIAXONE 2 G in IV D5W 100 ML IV SCH (20:30)
[2020-01-23] MEDS: ACETAMINOPHEN 650 MG/20.3 ML UDC NG PRN (21:08)
[2020-01-24] VITALS (83 sets, daily range): BP systolic 89–128; BP diastolic 28–74
[2020-01-24] MEDS: PROPOFOL 100 ML IV PRN ×10 (00:25→23:30)
[2020-01-24 05:12] LABS: BASOPHILS % (AUTO) 0.2 % (0.0-2.0); EOSINOPHILS % (AUTO) 0.2 % (0.0-6.0); HEMATOCRIT 34 % (39-51); HEMOGLOBIN 11.2 g/dL (13.5-17.5); LYMPHOCYTES % (AUTO) 8.6 % (20.0-44.0); MEAN CORPUSCULAR HGB CONC 33 g/dl (31.0-36.0); MEAN CORPUSCULAR VOLUME 91 fL (80-96); MONOCYTES # (AUTO) 0.6 /CMM (0.1-1.30); MONOCYTES % (AUTO) 5.1 % (2.0-12.0); NEUTROPHILS # (AUTO) 10.2 /CMM (1.8-8.9); NEUTROPHILS % (AUTO) 85.9 % (43.0-81.0); PLATELET COUNT (AUTO) 244 /CMM (150-450); RED BLOOD CELL COUNT(AUTO) 3.73 MIL/uL (4.5-6.0); WHITE BLOOD COUNT (AUTO) 11.8 K/uL (4.3-11.0)
[2020-01-24 05:39] LABS: CALCIUM, SERUM 8.1 mg/dL (8.5-10.1); CREATININE 0.9 mg/dL (0.6-1.3); POTASSIUM 4.4 mmol/L (3.5-5.1)
[2020-01-24] MEDS: NOREPINEPHRINE 8 MG in IV NS 0.9% 242 ML IV PRN (08:05)
[2020-01-24] MEDS: DEXAMETHASONE SOD PHOSPHATE 10 MG/ML VIAL IV SCH (11:23)
[2020-01-24] MEDS: PANTOPRAZOLE 40 MG TABLET.DR PO SCH (11:23)
[2020-01-24] MEDS: APIXABAN 5 MG TABLET PO SCH ×2 (11:24→17:11)
--- NOTE | 2020-01-24 18:38 | NUR ---
RN NOTE 0715: Received patient, sedated. With ETT to vent, tolerated settings. No respiratory distress noted at this time. With Right NGT intact, clamped. Reyes cath intact, noted with minimal UOP. INSPECTOR RECEIVING restraints on for safety. On isolation prec for Covid, maintained and observed. On Levo 0.05 and Diprivan 100mcg, will titrate as ordered. 0930: S/E by Dr. Santiago, with new vent settings changed carried out by RT. 1020: Family called, updated re: patient's condition. 1830: No any significant changes noted at this time. Kept clean, warm and dry. Off Levo, and on Dip 90 mcg.
[2020-01-24] MEDS: CEFTRIAXONE 2 G in IV D5W 100 ML IV SCH (20:30)
--- NOTE | 2020-01-24 22:04 | NUR ---
RT pt received on mechanical vent with current settings. intubated with ett size 7.5 at 26@ lip. vent plugged in to red outlet. ambu bag at bedside. alarms on and audible. small thin secretions suctioned via ett. no sob, no resp distress. will continue to monitor.
[2020-01-25] VITALS (47 sets, daily range): BP systolic 84–129; BP diastolic 41–71
[2020-01-25] MEDS: PROPOFOL 100 ML IV PRN ×12 (00:22→22:44)
[2020-01-25] MEDS: LORAZEPAM INJ 2 MG/ML VIAL IV PRN ×2 (01:16→03:54)
[2020-01-25 04:39] LABS: BASOPHILS # (AUTO) 0.1 /CMM (0.0-0.2); BASOPHILS % (AUTO) 0.5 % (0.0-2.0); EOSINOPHILS % (AUTO) 2.3 % (0.0-6.0); HEMATOCRIT 35 % (39-51); HEMOGLOBIN 11.9 g/dL (13.5-17.5); LYMPHOCYTES # (AUTO) 1.3 /CMM (0.8-4.8); LYMPHOCYTES % (AUTO) 9.7 % (20.0-44.0); MEAN CORPUSCULAR HGB CONC 34 g/dl (31.0-36.0); MEAN CORPUSCULAR VOLUME 90 fL (80-96); MONOCYTES # (AUTO) 0.4 /CMM (0.1-1.30); MONOCYTES % (AUTO) 2.8 % (2.0-12.0); NEUTROPHILS # (AUTO) 10.9 /CMM (1.8-8.9); NEUTROPHILS % (AUTO) 84.7 % (43.0-81.0); PLATELET COUNT (AUTO) 183 /CMM (150-450); RED BLOOD CELL COUNT(AUTO) 3.89 MIL/uL (4.5-6.0); WHITE BLOOD COUNT (AUTO) 12.9 K/uL (4.3-11.0)
[2020-01-25 04:53] LABS: CALCIUM, SERUM 7.7 mg/dL (8.5-10.1); CREATININE 0.9 mg/dL (0.6-1.3); MAGNESIUM 2.3 mg/dL (1.8-2.4); PHOSPHORUS 3.4 mg/dL (2.5-4.9); POTASSIUM 4.3 mmol/L (3.5-5.1)
[2020-01-25 06:05] LABS: ABG BASE EXCESS 2.6 mmol/L; ABG OXYGEN SATURATION 85.3 % (92.0-98.5); ABG PH 7.436 (7.350-7.450); COHb 0.2 % (0.5-1.5); MetHb 0.3 % (0.0-1.5); O2Hb 84.9 % (94.0-97.0); SITE, ABG Right Radial; VENT MODE, BG AC 20 550 100% +12
--- NOTE | 2020-01-25 06:26 | NUR ---
SUPERVISORY INVESTIGATIVE SPECIALIST PT W/INTERMITTENT EPISODES OF DESATURATION AND TACHYPNEA PROPOFOL INCREASED TO 100 MCG/KG/MIN; ATIVAN GIVEN x2 ABG DONE WITH PH 7.436 PCO2 41 PO2 54; WILL ENDORSE TO ONCOMING SHIFT.
[2020-01-25] MEDS: PANTOPRAZOLE 40 MG TABLET.DR PO SCH (08:49)
[2020-01-25] MEDS: DEXAMETHASONE SOD PHOSPHATE 10 MG/ML VIAL IV SCH (08:49)
[2020-01-25] MEDS: APIXABAN 5 MG TABLET PO SCH ×2 (08:50→16:07)
[2020-01-25] MEDS ORDERED: FENTANYL CITRATE IV 1,250 MCG in IV NS 0.9% 225 ML IV PRN (09:00)
[2020-01-25] MEDS ORDERED: LORAZEPAM INJ 2 MG/ML VIAL IV ONE (09:30)
[2020-01-25] MEDS ORDERED: FENTANYL CITRATE IV 2,500 MCG in IV NS 0.9% 200 ML IV PRN (15:30)
--- NOTE | 2020-01-25 16:00 | NUR ---
RN NOTES DR GOMEZ NOTIFED REGARDING LOW URINE OUTPUT , NEW ORDER GIVEN .
[2020-01-25] MEDS ORDERED: FUROSEMIDE 20 MG/2 ML VIAL IV STA (16:15)
[2020-01-25] MEDS ORDERED: FUROSEMIDE 100 MG/10 ML VIAL IV ONE (16:30)
[2020-01-25] MEDS: FENTANYL CITRATE IV 2,500 MCG in IV NS 0.9% 200 ML IV PRN (17:33)
--- NOTE | 2020-01-25 18:55 | NUR ---
RN NOTES PT REMAINS INTUBATED AND SEDATED ON ,DIPRIVAN AT 95MCG/KG/MIN , FENTANYL GTT AT 2MCG/KG/MIN RUNNING , FIO2 AT 100%, PEEP OF 14 , VSS STABLE AT THIS TIME, SR UP x3, CALL LIGHT WITHIN EASY REACH, BED LOCKED AND IN LOWEST POSITION, WILL ENDORSE TO NEW HOME SALES CONSULTANT NURSE FOR CONTINUITY OF CARE .
--- NOTE | 2020-01-25 20:30 | NUR ---
fio2 decreased due to increased spo2. rn notified Addendum: 01/26/20 at 0459 by JENIFFER AMAYA RT Amended: Links added.
[2020-01-25] MEDS: CEFTRIAXONE 2 G in IV D5W 100 ML IV SCH (20:45)
[2020-01-26] VITALS (71 sets, daily range): BP systolic 50–149; BP diastolic 20–75
[2020-01-26] MEDS: PROPOFOL 100 ML IV PRN ×7 (00:45→17:55)
[2020-01-26] MEDS: ACETAMINOPHEN 650 MG/20.3 ML UDC NG PRN (01:12)
[2020-01-26] MEDS ORDERED: NOREPINEPHRINE 4 MG/4 ML AMPUL IV ONE (03:33)
[2020-01-26] MEDS: NOREPINEPHRINE 8 MG in IV NS 0.9% 242 ML IV PRN ×4 (03:36→19:13)
[2020-01-26 05:13] LABS: BASOPHILS % (AUTO) 0.1 % (0.0-2.0); EOSINOPHILS % (AUTO) 1.4 % (0.0-6.0); HEMATOCRIT 41 % (39-51); HEMOGLOBIN 13.6 g/dL (13.5-17.5); LYMPHOCYTES # (AUTO) 1.1 /CMM (0.8-4.8); LYMPHOCYTES % (AUTO) 4.1 % (20.0-44.0); MEAN CORPUSCULAR HGB CONC 33 g/dl (31.0-36.0); MEAN CORPUSCULAR VOLUME 92 fL (80-96); MONOCYTES # (AUTO) 1.2 /CMM (0.1-1.30); MONOCYTES % (AUTO) 4.3 % (2.0-12.0); NEUTROPHILS # (AUTO) 24.3 /CMM (1.8-8.9); NEUTROPHILS % (AUTO) 90.1 % (43.0-81.0); PLATELET COUNT (AUTO) 277 /CMM (150-450); WHITE BLOOD COUNT (AUTO) 26.9 K/uL (4.3-11.0)
[2020-01-26 05:28] LABS: CALCIUM, SERUM 7.4 mg/dL (8.5-10.1); CREATININE 2.3 mg/dL (0.6-1.3); MAGNESIUM 2.9 mg/dL (1.8-2.4); POTASSIUM 5.4 mmol/L (3.5-5.1)
[2020-01-26 05:52] LABS: PHOSPHORUS 8.3 mg/dL (2.5-4.9)
--- NOTE | 2020-01-26 07:00 | NUR ---
RN NOTES RECEIVED PT ON BED, INTUBATED AND SEDATED, ON DIPRIVAN AT 95MCG/KG/MIN , FENTANYL GTT AT 2 MCG/KG/MIN RUNNING , ON TELE ST HR IN 100'S, BRANDON DRAINING WITH SMALL AMOUNT OF URINE , LEVO AT .2 MCG/KG/MIN RUNNING FOR BP SUPPORT . SR UP x3. CALL LIGHT WITHIN EASY REACH, CONTINUE TO MONITOR .
[2020-01-26] MEDS: FENTANYL CITRATE IV 2,500 MCG in IV NS 0.9% 200 ML IV PRN ×2 (07:28→21:55)
[2020-01-26] MEDS: PANTOPRAZOLE 40 MG TABLET.DR PO SCH (08:13)
[2020-01-26] MEDS: DEXAMETHASONE SOD PHOSPHATE 10 MG/ML VIAL IV SCH (08:13)
[2020-01-26] MEDS: APIXABAN 5 MG TABLET PO SCH ×2 (08:16→16:39)
[2020-01-26 08:35] LABS: ABG BASE EXCESS -9.8 mmol/L; ABG PCO2 41.3 mmHg (35.0-45.0); ABG PH 7.236 (7.350-7.450); ABG PO2 73.9 mmHg (75.0-100.0); AaDO2 453.1 mmHg; COHb 0.8 % (0.5-1.5); MetHb 0.4 % (0.0-1.5); O2Hb 88.9 % (94.0-97.0); PEEP,BG 14 cm H2O; SITE, ABG Right Radial; VT, ABG 550 mL
[2020-01-26] MEDS ORDERED: MIDAZOLAM HCL 100 MG in IV NS 0.9% 80 ML IV PRN (15:30)
--- NOTE | 2020-01-26 18:00 | NUR ---
RN NOTES PT RECEIVING HD AT THIS TIME, PT ON LEVO AT .08MCG/KG/MIN , FENTANYL AT 3MCG/KG/MIN , DIPRIVAN AT 100MCG/KG/MIN , WILL ENDOSE TO PICKED EDGE SEWING MACHINE OPERATOR NURSE FOR CONTINUITY OF CARE .
[2020-01-26] MEDS ORDERED: NEPRO 1,000 ML BOTTLE GT PRN (18:30)
--- NOTE | 2020-01-26 19:00 | NUR ---
multicut line operator, received the pt orally intubated. pt is very unstable. no blood pressure reading. levo max out. notified ms josemanuel. ordered berneice. will continue to monitor
[2020-01-26] MEDS ORDERED: PHENYLEPHRINE 100 MG in IV NS 0.9% 240 ML IV PRN (20:00)
[2020-01-26] MEDS ORDERED: NOREPINEPHRINE 32 MG in IV NS 0.9% 218 ML IV PRN (20:30)
--- NOTE | 2020-01-26 22:00 | NUR ---
rt called to pt bedside for code blue. cpr initiated. pt ventilated by vent due to covid 19 precautions. Addendum: 01/27/20 at 0615 by JENIFFER AMAYA RT Amended: Links added.
--- NOTE | 2020-01-26 22:05 | NUR ---
icu manager. vehicle monitor technician showing, v tach,v fib, activated, code blue, er at bed side, see code blue sheet, pt at 2212.family notified,
--- NOTE | 2020-01-26 22:05 | NUR ---
agricultural extension educator, pt condition notified family.
--- NOTE | 2020-01-26 23:00 | NUR ---
travel registered nurse nicu, notified [employer], #[phone], spoke with tyson
--- NOTE | 2020-01-26 23:30 | NUR ---
multicut line operator post mortem care given, body send to [facility]
[2020-01-27] MEDS ORDERED: EPINEPHRINE (1:10,000) SYRINGE 1 MG/10 ML DISP.SYRIN IVP ONE (04:21)
[2020-01-27] MEDS ORDERED: PROSOURCE / PROSTAT (PYXIS) 30 ML UDC GT SCH (09:00)
== END 2020-01-27 04:22 | disposition expired | DRG 720 ==
LOC: ER 16:02 → TELE-TD 20:13 → TELE1 21:28 → ICU 01-20 07:50
PROVIDERS: ADMIT Nurse Practitioner Acute Care; ATTEND Internal Medicine
PROC: XW13325 Transfusion of Convalescent Plasma (Nonautologous) into Peripheral Vein, Percutaneous Approach, New Technology Group 5 (ICD-10-PCS; 2020-01-18)
PROC: XW033E5 Introduction of Remdesivir Anti-infective into Peripheral Vein, Percutaneous Approach, New Technology Group 5 (ICD-10-PCS; 2020-01-19)
PROC: 5A1955Z Respiratory Ventilation, Greater than 96 Consecutive Hours (ICD-10-PCS; principal; 2020-01-22)
PROC: 0BH18EZ Insertion of Endotracheal Airway into Trachea, Via Natural or Artificial Opening Endoscopic (ICD-10-PCS; 2020-01-22)
PROC: XW033H5 Introduction of Tocilizumab into Peripheral Vein, Percutaneous Approach, New Technology Group 5 (ICD-10-PCS; 2020-01-22)
PROC: 05HY33Z Insertion of Infusion Device into Upper Vein, Percutaneous Approach (ICD-10-PCS; 2020-01-26)
PROC: 5A2204Z Restoration of Cardiac Rhythm, Single (ICD-10-PCS; 2020-01-26)
PROC: 06HY33Z Insertion of Infusion Device into Lower Vein, Percutaneous Approach (ICD-10-PCS; 2020-01-26)
DX: A41.89 Other specified sepsis (principal); U07.1 COVID-19; N17.0 Acute kidney failure with tubular necrosis; J96.01 Acute respiratory failure with hypoxia; J12.89 Other viral pneumonia; E87.2 Acidosis; E87.6 Hypokalemia; E88.09 Other disorders of plasma-protein metabolism, not elsewhere classified; E87.1 Hypo-osmolality and hyponatremia; R73.9 Hyperglycemia, unspecified; E86.1 Hypovolemia; E87.5 Hyperkalemia; E83.39 Other disorders of phosphorus metabolism; D64.9 Anemia, unspecified; E78.1 Pure hyperglyceridemia
CPT/HCPCS: 31720; 36410; 36415; 36600; 71045-TC; 80048-TC; 80053-TC; 80061-TC; 80076-TC; 81001; 82550-TC; 82570-TC; 82728-TC; 82803-TC; 83605-TC; 83615-TC; 83735-TC; 84100-TC; 84155-TC; 84300-TC; 84443-TC; 84478-TC; 84484-TC; 85025-TC; 85378-TC; 85610-TC; 85730-TC; 86140; 86140-TC; 86480; 86850-TC; 87040-TC; 87081-TC; 87899; 90935-TC; 92950-TC; 94003-TC; 94799-TC; A4216; A4217; C9803; G0378; J0171; J0456; J0692; J0696; J1100; J1200; J1650; J1940; J2060; J2250; J2370; J3010; J3262; J3370; J3490; J7030; J7050; J7060; P9017-BL; U0003